=== PATIENT | male | born 1980 | race Caucasian/White ===

== ENCOUNTER 2024-09-10 07:56 | Outpatient (AMB) | payer BC, SELFPAY ==
--- OUTSIDE RECORDS SUMMARY | 2024-09-10 07:58 | XMS_ITS | Data Portability ---
Author Organization [place] - [facility], [facility] [employer] Address [address] [place] [address] Assessment No assessment recorded. Plan of Treatment Reminders Order Date Submit Date Provider Last Modified By Organization Details Last Modified Time Details Appointments None recorded . Lab culture, wound - left hand wound 2018 019 [facility], [address] [place], [address], 9 11:05:48 PSA, serum or plasma 2017 018 [facility], [address] [place], [address], 8 14:49:03 glucose, fasting, QN, serum or plasma 2017 018 [facility], [address] [place], [address], 8 14:53:18 choleste rol, total, serum 2017 018 [facility], [address] [place], [address], 8 14:53:20 creatini ne, serum or plasma 2017 018 [facility], [address] [place], [address], 8 14:53:18 glucose, QN [mass/vo lume], serum or plasma 2016 017 [facility], [address] [place], [address], 7 20:06:25 creatini ne, serum or plasma 2016 017 [facility], [address] [place], [address], 7 20:06:26 PSA, serum or plasma 2016 017 [facility], [address] [facility] [place], [address], 7 09:29:28 choleste rol, total, serum 2016 017 [facility], [address] [place], [address], 7 20:06:27 CBC w/ manual diff 2015 016 [email or web address] Not available 7 08:38:29 CMP, serum or plasma 2015 016 [email or web address] Not available 7 08:38:29 lipid panel, serum 2015 016 [email or web address] [id number] Not available 6 04:16:11 lipid panel, serum 2015 016 [email or web address] [facility], [address] [place], [address], 7 08:38:29 bun/crea tinine, ratio, serum 2015 016 [email or web address] [id number] [facility], [address] [facility], [address], 6 04:16:14 glucose, QN [mass/vo lume], serum or plasma 2015 016 [email or web address] [id number] [facility], [address] [facility] [place], [address], 6 04:16:57 vitamin D, 25-hydro xy, total, serum 2015 016 [facility], [address] [place], [address], 7 08:38:29 PSA, serum or plasma 2015 016 [email or web address] [id number] [facility], [address] [place], [address], 6 04:16:11 choleste rol, total, serum 2015 016 [facility], [address] [place], [address], 7 08:38:29 Referral hand surgeon referral 2018 019 LACEY Hairston DO, [address] [place], [address], 9 12:04:48 Procedures None recorded . Surgeries None recorded . Imaging XR, hand, 2 view 2018 019 [facility] (Central Scheduling), [address] [facility], [place], [address], 9 14:02:03 electroc ardiogra m 2016 017 [email or web address] In-Office Order, Internal Use Only DO Not Attach Compendium DO Not Attach Compendium, Do Not Delete/merge, [id number] 7 08:12:40 Medication Orders doxycycl ine hyclate 100 mg tablet 2018 019 [email or web address] [facility], [address] [facility], [place], [address], 9 09:24:46 triamcin olone acetonid e 0.1 % topical cream 2017 018 INTERFACE [id number], [address] [place], [place], [id number], 8 09:24:43 Patient TargetsNo targets recorded. Patient Instructions Encounter Date Encounter Id Patient Instructions Last Modified By Organization Details Last Modified Time 04/14/2017 [id number] heart murmur: care instructions [email or web address] Not available 04/18/2017 09:50:14 04/17/2018 [id number] Eczema: Care Instructions [email or web address] Not available 04/17/2018 09:24:40 10/12/2018 [id number] tick bite: care instructions [email or web address] Not available 10/12/2018 15:25:50 12/21/2018 [id number] X-ray hand to rule out foreign body. You can go to either [place] or [place] as a walk-in patient during normal business hours. I have sent a wound culture. I'm referring you to a hand specialist since this is not a lesion I can excise for you here in the office and it's near important hand structures. Follow up as needed. [email or web address] Not available 12/21/2018 09:46:41 Reason for Referral Hand Surgeon Referral for So ft tissue lesion of wrist and hand nonhealing left hand lesion Referring Physician: Amber Garcia, Internal Medicine, Encounter Date: 12/21/2018 Results Created Date Observation Date Name Description Value Unit Range Abnormal Flag Note LastModifiedBy Organization Detail LastModifiedTime 01/15/20 16 01/15/2016 bun/c reati nine, ratio , serum BUN 15 mg/dL 6-21 normal Not Available [address] [place] [address], [address], 01/15/2016 19:46:12 01/15/20 16 01/15/2016 bun/c reati nine, ratio , serum creatinine 1.06 mg/dL 0.0-1. 3 normal Not Available [address] [place] [address], [address], 01/15/2016 19:46:12 01/15/20 16 01/15/2016 bun/c reati nine, ratio , serum glomerular filtration rate > 60 normal Units : mL/mi n/1.7 3 m2 Estim ated GFR (eGFR ) lida hand not be used for patie nts with acute kidne y injur y or ESRD (crea tinin e shoul d be at stead y state and stabl e to use). eGFR is calcu lated using the 2009 CKD-E PI creat inine equat ion, which is now the recom abraham d equat ion to estim ate GFR based on creat inine per lates t KDIGO (Kidn ey Disea se Impro ving Globa l Outco mes) Guide lines . KDIGO recom mends CKD now be class ified based on cause , GFR categ ory, and album inuri a categ ory. GFR categ ories will not be repor mildred by the lab for G1 or G2 (eGFR >60). GFR categ ories shoul d be assig lilo as: eGFR 45-59 = G3a (mild ly to moder ately decre ased) , eGFR 30-44 = G3b (mode ratel y to sever amarilis decre ased) , eGFR 15-29 G4 (nuris rely decre ased) , eGFR< 15 G5 (kidn ey failu re). Not Available [address] [place] [address], [address], 01/15/2016 19:46:12 01/15/2001/15/2016 gluco se, QN [mass /volu me], serum or plasm a glucose 86 mg/dL 70-109 normal Not Available [address] [place] [address], [address], 01/15/2016 19:46:13 01/15/2001/15/2016 lipid panel , serum cholesterol 182 mg/dL normal CORRIE ABLE <200 Corrie able 200-2 39 Borde rline High >=240 High Not Available [address] [place] [address], [address], 01/15/2016 19:46:13 01/15/2001/15/2016 lipid panel , serum triglyceride 82 mg/dL normal SOPHIE L <=150 Sophie l 150-1 99 Borde rline High 200-4 99 High >=500 Very High Not Available [address] [place] [address], [address], 01/15/2016 19:46:13 01/15/2001/1401/15/2016 lipid panel , serum HDL 54 mg/dL normal <40 Low >=60 Optim al Not Available [address] [place] [address] [address] [place] [address], [address], 01/15/2016 19:46:13 01/15/20 16 01/15/2016 lipid panel , serum calculated LDL 112 mg/dL normal NEAR OPTIM AL <100 Optim al 100-1 29 Near optim al 130-1 59 Borde rline High 160-1 89 High >=190 Very High The above class ifica tions are based on the recom menda tions of the NCEP Exper t Panel , (ATP III, 2001) . Not Available [address] [place] [address], [address], 01/15/2016 19:46:13 01/15/20 16 01/16/2016 PSA, serum or plasm a prostatic specific Ag 1.07 NG/mL 0-4 normal PSA was perfo rmed using the ACCES SII Immun oassa y metho d. Value s obtai lilo from diffe rent assay metho ds canno t be used inter rossi eably . PSA level s, regar dless of value , shoul d not be inter prete d as absol [place] evide nce of the prese nce or absen ce of disea se. Not Available [address] [place] [address], [address], 01/16/2016 13:00:15 04/14/20 17 04/14/2017 gluco se, QN [mass /volu me], serum or plasm a glucose 64 mg/dL 70-109 low Not Available [address] [place] [address] [address] [place] [address], [address], 04/14/2017 20:06:25 04/14/20 17 04/14/2017 creat inine , serum or plasm a creatinine 1.09 mg/dL 0.0-1. 3 normal Not Available [address] [place] [address], [address], 04/14/2017 20:06:26 04/14/20 17 04/14/2017 creat inine , serum or plasm a glomerular filtration rate > 60 normal Units : mL/mi n/1.7 3 m2 Estim ated GFR (eGFR ) shoul d not be used for patie nts with acute kidne y injur y or ESRD (crea tinin e shoul d be at stead y state and stabl e to use). eGFR is calcu lated using the 2009 CKD-E PI creat inine equat ion, which is now the recom abraham d equat ion to estim ate GFR based on creat inine per lates t KDIGO (Kidn ey Disea se Impro ving Globa l Outco mes) Guide lines . KDIGO recom mends CKD now be class ified based on cause , GFR categ ory, and album inuri a categ ory. GFR categ ories will not be repor mildred by the lab for G1 or G2 (eGFR >60). GFR categ ories shoul d be assig lilo as: eGFR 45-59 = G3a (mild ly to moder ately decre ased) , eGFR 30-44 = G3b (mode ratel y to sever amarilis decre ased) , eGFR 15-29 G4 (nuris rely decre ased) , eGFR< 15 G5 (kidn ey failu re). Not Available [address] [place] [address], [address], 04/14/2017 20:06:26 04/14/20 17 04/14/2017 vu stero l, total , serum cholesterol 154 mg/dL normal CORRIE ABLE <200 Corrie able 200-2 39 Borde rline High >=240 High The above class ifica tions are based on the recom menda tions of the NCEP Exper t Panel , (ATP III, 2001) . Not Available [address] [place] [address] [address] [place] [address], [address], 04/14/2017 20:06:27 04/14/20 17 04/15/2017 PSA, serum or plasm a prostatic specific Ag 1.21 NG/mL 0-4 normal PSA was perfo rmed using the ACCES SII Immun oassa y metho d. Value s obtai lilo from diffe rent assay metho ds canno t be used inter rossi jaswant . PSA level s, regar dless of value , shoul d not be inter prete d as absol [place] evide nce of the prese nce or absen ce of disea se. Not Available [address] [place] [address] [address] [place] [address], [address], 04/15/2017 09:29:28 04/17/20 18 04/17/2018 PSA, serum or plasm a PSA screen 0.92 NG/mL 0-4 normal Value s obtai lilo from diffe rent assay metho ds canno t be used inter [facility] . PSA level s, regar dless of value , shoul d not be inter prete d as absol [place] evide nce of the prese nce or absen ce of disea se. Not Available [address] [place] [address], [address], 04/17/2018 14:49:02 04/17/20 18 04/17/2018 gluco se, fasti ng, QN, serum or plasm a glucose, fasting 95 mg/dL 70-100 normal Not Available [address] [place] [address] Draw[address] [place] [address], [address], 04/17/2018 14:53:18 04/17/20 18 04/17/2018 creat inine , serum or plasm a creatinine 1.04 mg/dL 0.0-1. 3 normal Not Available [address] [place] [address], [address], 04/17/2018 14:53:18 04/17/20 18 04/17/2018 creat inine , serum or plasm a glomerular filtration rate > 60 normal Units : mL/mi n/1.7 3 m2 Estim ated GFR (eGFR ) henrryul d not be used for patie nts with acute kidne y injur y or ESRD (crea tinin e henrryul d be at stead y state and stabl e to use). eGFR is calcu lated using the 2009 CKD-E PI creat inine equat ion, which is now the recom abraham d equat ion to estim ate GFR based on creat inine per lates t KDIGO (Kidn ey Disea se Impro ving Globa l Outco mes) Guide lines . KDIGO recom mends CKD now be class ified based on cause , GFR categ ory, and album inuri a categ ory. GFR categ ories will not be repor mildred by the lab for G1 or G2 (eGFR >60). GFR categ ories shoul d be assig lilo as: eGFR 45-59 = G3a (mild ly to moder ately decre ased) , eGFR 30-44 = G3b (mode ratel y to sever amarilis decre ased) , eGFR 15-29 G4 (nuris rely decre ased) , eGFR< 15 G5 (kidn ey failu re). Not Available [address] [place] [address], [address], 04/17/2018 14:53:18 04/17/20 18 04/17/2018 vu stero l, total , serum cholesterol 190 mg/dL normal CORRIE ABLE <200 Corrie able 200-2 39 Borde rline High >=240 High The above class ifica tions are based on the recom menda tions of the NCEP Exper t Panel , (ATP III, 2001) . Not Available [address] [place] [address], [address], 04/17/2018 14:53:19 12/22/19 19 12/22/2018 cultu re, wound gram stain GRAM STAIN RESULT normal Not Available [address] [place] [address], [address], 12/23/2018 13:02:59 12/22/1912/22/2018 cultu re, wound gram stain NO CELLS OR ORGANI SMS SEEN normal Not Available [address] [place] [address], [address], 12/23/2018 13:02:59 12/22/1912/22/2018 cultu re, wound gram stain Not Available [address] [place] [address] Draw[address] [place] [address], [address], 12/23/2018 13:02:59 12/22/1912/23/2018 cultu re, wound wound culture ORGANI SM 1: STAPHY LOCOCC US INTERM EDIUS Not Available [address] [place] [address] [address] [place] [address], [address], 12/23/2018 13:02:59 12/22/19 19 12/23/2018 cultu re, wound wound culture 2+ Not Available [address] [facility] [address] [place] [address], [address], 12/23/2018 13:02:59 12/22/19 19 12/23/2018 cultu re, wound wound culture Not Available [address] [place] [address], [address], 12/23/2018 13:02:59 12/22/19 19 12/23/2018 cultu re, wound wound culture STAPHY LOCOCC US INTERM EDIUS: GRAM POS BP COMBO 20-MSC AN Not Available [address] [place] [address], [address], 12/23/2018 13:02:59 12/22/19 19 12/23/2018 cultu re, wound wound culture TRIMET HOPRIM /SULFA METHOX AZOLE S susceptib le Not Available [address] [place] [address], [address], 12/23/2018 13:02:59 12/22/19 19 12/23/2018 cultu re, wound wound culture AMPICI LLIN R resistant Not Available [address] [place] [address], [address], 12/23/2018 13:02:59 12/22/1912/23/2018 cultu re, wound wound culture CEPHAL OTHIN S susceptib le Not Available [address] [place] [address], [address], 12/23/2018 13:02:59 12/22/1912/23/2018 cultu re, wound wound culture CIPROF LOXACI N S susceptib le Not Available [address] [place] [address], [address], 12/23/2018 13:02:59 12/22/19 19 12/23/2018 cultu re, wound wound culture CLINDA MYCIN S susceptib le Not Available [address] [place] [address], [address], 12/23/2018 13:02:59 12/22/1912/23/2018 cultu re, wound wound culture ERYTHR OMYCIN S susceptib le Not Available [address] [place] [address], [address], 12/23/2018 13:02:59 12/22/1912/23/2018 cultu re, wound wound culture GENTAM ICIN S susceptib le Not Available [address] [place] [address], [address], 12/23/2018 13:02:59 12/22/1912/23/2018 cultu re, wound wound culture OXACIL ISABEL S susceptib le Not Available [address] [place] [address], [address], 12/23/2018 13:02:59 12/22/1912/23/2018 cultu re, wound wound culture PENICI LLIN R resistant Not Available [address] [place] [address], [address], 12/23/2018 13:02:59 12/22/1912/23/2018 cultu re, wound wound culture TETRAC YCLINE R resistant Not Available [address] [place] [address], [address], 12/23/2018 13:02:59 12/22/1912/23/2018 cultu re, wound wound culture VANCOM YCIN S susceptib le Not Available [address] [place] [address], [address], 12/23/2018 13:02:59 12/22/1912/23/2018 cultu re, wound wound culture Not Available [address] [place] [address] [address] [place] [address], [address], 12/23/2018 13:02:59 04/18/20 17 04/14/2017 elect rocar diogr am No observ ation record ed. [facility] In-Office Order Internal Use Only DO Not Attach Compendium DO Not Attach Compendium, Do Not Delete/merge, [id number] 04/18/2017 09:30:01 12/22/19 19 12/21/2018 hand [facility] s SHAN RN [facility] ALON IMAGIN G CTR DIAGNO STIC IMAGIN G DEPART MENT [address] [place]. [address] - Patien t: PEPPER MAYRA TAY Lewis Phone: Exam Date:0 9 Exam: HAND & WRIST 3 VIEW LT Attend azul Fontaine:MIKE KINGSTON :[birth year] Age/Se x: 38/M Orderi tyrone Fontaine:MIKE KINGSTON ECammy Attend azul Fontaine: Gurmeet Fontaine: JUAN M MAN MD X-Ray #: [id number] Locati on: RAD.NA Other Locati on: Clinic al Histor y: SOFT TISSUE LESION OF LEFT WRIST AND HAND HAND WRIST 3 VIEW LT 019 10:28 AM CLINIC AL INFORM ATION: SOFT TISSUE LESION OF LEFT WRIST AND HAND ; 38 years Male Findin gs: The bones, joint spaces , and surrou nding soft tissue s are radiog raphic ally normal . Impres [place]: Negati ve exam. Statio n: [id number] 0A Access ion Number : [id number] Transc ribed by: PS Interp reting Physic belinda: PARIS VOSS MD Electr onical ly Signed by: JUDIE VOSS MD on 1332 Rec'd in [facility] on : 1332 Techno logist : CP Exam CPT #: ,Order #: [id number] Report #: [id number] Med Rec#:[id number] Report Status : Signed [facility] (Radiology) [address] [place] [address], [address], 12/21/2018 15:43:09 12/22/19 19 12/21/2018 XR, hand, 2 view No observ ation record ed. [facility] (Central Scheduling) [address] [place] [address], [address], 12/21/2018 14:02:03 01/27/20 19 12/21/2018 XR, hand, 2 view No observ ation record ed. [facility] (Central Scheduling) [address] [place] [address], [address], 01/26/2019 13:38:10 Result Notes None recorded. Problems No Known Problems Procedures Surgical History Date Name Laterality Status Provider Name and Address Organization Details Recorded Time Tonsillectomy completed Juan M moran MD. [address] [place] [address], [phone], [facility] 04/17/2018 09:10:52 Imaging Results Imaging Date Name Status LastModified by Organization Details LastModified Time 04/14/2017 electrocardiogram completed [facility] In-Offi ce Order Internal Use Only DO Not Attach Compendium DO Not Attach Compendium, Do Not Delete/merge, [id number] 04/18/2017 09:30:01 12/21/2018 hand completed [facility] (Radiology) [address] [place] [address], [address], 12/21/2018 15:43:09 12/21/2018 XR, hand, 2 view completed [facility] (Central Scheduling) [address] [place] [address], [address], 12/21/2018 14:02:03 12/21/2018 XR, hand, 2 view completed [facility] (Central Scheduling) [address] [place] [address], [address], 01/26/2019 13:38:10 Procedure Notes None recorded. Medical Equipment None Reported. Allergies No known drug allergies Medications Name Sig Start Date Stop Date Status Note LastModified by Organization Details LastModified Time sulfamethox azole 800 mg-trimetho prim 160 mg tablet TAKE 1 TABLET BY MOUTH EVERY 12 HOURS FOR 10 DAYS active Not Available Not Available No t Available triamcinolo ne acetonide 0.1 % topical cream APPLY A THIN LAYER TO THE AFFECTED AREA(S) TOPICALLY 2 TIMES A DAY active Not Available Not Available No t Available doxycycline hyclate 100 mg tablet TAKE 1 TABLET BY MOUTH TWICE DAILY WITH MEALS 12/21 completed Not Available Not Available Not Available Vitals Date Recorded Body height Body weight Body mass index (BMI) Heart rate Oxygen saturation Oxygen saturation in Arterial blood by Pulse oximetry Body temperature Systolic blood pressure Diastolic blood pressure Provider Name and Address Organization Details Last Updated DateTime 6 182.88 cm 75273.2 2 g 24.5 kg/m2 52 /min 99 % 99 % 97.6 [degF] 132 mm[Hg] 72 mm[Hg] Isamar Mitchell LPN [employer] 6 14:30:46 Date Recorded Body height Body mass index (BMI) Body weight Heart rate Oxygen saturation Oxygen saturation in Arterial blood by Pulse oximetry Systolic blood pressure Diastolic blood pressure Provider Name and Address Organization Details Last Updated DateTime 7 182.88 cm 25.5 kg/m2 79945.3 7 g 58 /min 98 % 98 % 120 mm[Hg] 80 mm[Hg] cababurton gallegos [employer] 7 14:14:07 Date Recorded Body height Body mass index (BMI) Body weight Heart rate Oxygen saturation Oxygen saturation in Arterial blood by Pulse oximetry Systolic blood pressure Diastolic blood pressure Provider Name and Address Organization Details Last Updated DateTime 8 182.88 cm 27.4 kg/m2 59639.6 6 g 63 /min 96 % 96 % 116 mm[Hg] 82 mm[Hg] rosales brock [employer] 8 09:02:30 Date Recorded Body height Body mass index (BMI) Body weight Heart rate Oxygen saturation Oxygen saturation in Arterial blood by Pulse oximetry Body temperature Systolic blood pressure Diastolic blood pressure Provider Name and Address Organization Details Last Updated DateTime 9 182.88 cm 27.3 kg/m2 58036.1 7 g 79 /min 99 % 99 % 98.2 [degF] 120 mm[Hg] 80 mm[Hg] dennis carey [facility] [employer] [facility] 9 15:13:45 Date Recorded Body height Body mass index (BMI) Body weight Heart rate Oxygen saturation Oxygen saturation in Arterial blood by Pulse oximetry Systolic blood pressure Diastolic blood pressure Provider Name and Address Organization Details Last Updated DateTime 9 182.88 cm 26.9 kg/m2 66310.0 9 g 66 /min 96 % 96 % 118 mm[Hg] 76 mm[Hg] Susy SmithDonaldJoshua safia [facility] [employer] [facility] 9 09:18:20 Social History None recorded. 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 Family History Relationship Description Onset Age of this Age Resolved Age Notes LastModified by Organization Details LastModified Time Father Carcinoma of prostate ajoslin Not available 2015 14:11:44 Notes:Kristopher has no children M ategisellel grandfather is alive and quite well at advanced age. Medical History No medical history recorded. Immunizations Vaccine Type Date Status Note Provider Nam e and Address Organization Details Recorded Time Influenza, split virus, quadrivalent, preservative 0 completed Paula Berry LPN [facility] [employer] [facility] 07/27/2019 10:12:56 Past Encounters Encounter ID Performer Location Encounter Start Date Encounter Closed Date Diagnosis/Indication Diagnosis SNOMED-CT Code Diagnosis ICD10 Code Diagnosis Note [id number] Juan M Man MD. [facility] [employer]ist s [address] [place] [phone] 01/15/2016 14:19:29 01/15/2016 16:57:06 Adult health examination 087590108 Z00.00 General health remains excellent and he has not smoked for quite a while now. We will check routine lab studies. Continue healthy lifestyle and close followup here and with other providers. Call back if symptoms change or worsen, or if additional problems develop. Screening procedure 2012 5006 Z13.9 Vitamin D deficiency 347 63798 E55.9 Hyperlipid emia screening 622490831 Z13.220 Screening for disorder 309578451 Z13.9 [id number] Juan M Man MD. [facility] [employer]ist s [address] [place] [address] [place] [phone] 04/14/2017 14:04:38 04/14/2017 14:48:41 Adult health examination 089457213 Z00.00 General health remains excellent and he has not smoked for quite a while now. Will check routine lab studies. Continue healthy lifestyle and routine followup here and with other providers. Call back if symptoms change or worsen, or if additional problems develop. Screening procedure 2012 5006 Z13.9 Father has had prostate cancer Murmur 851544496 R01.1 Most likely functional murmur [id number] Juan M Man MD. [facility] [employer] s [address] [place] [address] [place] [address] 04/17/2018 08:58:28 04/17/2018 09:51:16 Adult health examination 437779025 Z00.00 General health remains excellent and he has not smoked for quite a while now. Will check routine lab studies. Continue healthy lifestyle and routine followup here and with other providers. Avoid further weight gain Call back if symptoms change or worsen, or if additional problems develop. Family his tory of malignant neoplasm of prostate 370584550 Z80.42 Atopic dermatitis 420486 01 L20.9 Minor findings consistent with atopic dermatitis exacerbate d by dryness [id number] Joey Higginbotham MD. [facility] [employer] s [address] [place] [address] [place] [address] 10/12/2018 15:07:47 10/12/2018 15:27:01 Tick bite [id number].XXXA suspect lyme tick bite [id number] Kameron Bryant MD. [facility] Information Systems Security Specialist s [address] [place] [address] [place] [address] 12/21/2018 09:10:58 12/21/2018 09:41:07 Soft tissue lesion of wrist and hand [id number] M79.9 Health Concerns Section Related Observation LastModified by Organization Detai ls LastModified Time None Recorded Concern Status LastModified by Organization Details LastModified Time None Recorded Advance Directives Directive None Recorded Payers Encounter Date Sequence Insurance Name Policy Number Policy Valenzuela Covered Member ID Valenzuela Member ID Guarantor Name 01/15/2016 1 [facility] (O) Anthony Pepper [id number] Anthony Pepper 04/14/2017 1 [employer] - [employer] (HMO) [id number] Anthony Johnsonker [id number] Anthony Pepper 04/17/2018 1 [facility] DIRECT - [employer] (HMO) [id number] Anthony Lewis Pepper [id number] Anthony Pepper 10/12/2018 1 [facility] [employer] - [employer] (HMO) [id number] Anthony T Ppeper [id number] Anthony Pepper 12/21/2018 1 [facility] [employer] - [employer] (HMO) [id number] Anthony T Pepper [id number] Anthony Pepper Notes Date Note Type Note Provider Name and Address Organization Details Recorded Time 01/15/2016 text/html Nothing hurts. H as not been ill. No injuries. Feels well today. Medical record and laboratory results reviewed No complaints of any kind. No problems related to past sports injuries. Juan M Man MD. [address] [place] [address], [phone], [facility] [employer] 01/18/2016 14:17:33 04/14/2017 text/html Comprehensive review Nothing hurts. Has not been ill. No injuries. Feels well today. Medical record and laboratory results and consultations and imaging reviewedHeart murmur noted in the past. He recalls having echocardiogram which revealed no worrisome findings No prescription medications Athletic. Continues to play basketball Juan M Man MD. [address] [place] [address], [phone], [facility] [employer] [facility] 04/17/2017 15:55:23 04/17/2018 text/html Comprehensive review Nothing hurts. Has not been ill. No injuries. Feels well today. Medical record and laboratory results and consultations and imaging reviewed. No prescription medications Athletic. Continues to play basketball. Has some rash in the popliteal area. No particular history of any skin disorders Juan M Man MD. [address] [place] [address], [phone], [facility] [employer] 04/18/2018 16:02:14 10/12/2018 text/html patient had a ti ck bite on the left upper back with a red circular rash which developed about a week after the tick was removed. patient said he is unsure how long the tick was on his body and he is also not sure what kind of tick that was. his friend pulled it out for him. no fever. patient did see the tick. Joey Higginbotham MD. 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 Amber Garcia NP [address] [place], [phone], [employer] 12/21/2018 09:46:57
--- NOTE | 2024-09-10 08:15 | A.OFFVIS_ITS ---
Intake Visit Reasons: Vasectomy Consult Allergies No Known Allergies Allergy (Verified 09/10/24 08:43) Medication List - Last Reconciled 09/10/24 by ALLISON Kelley-IRAM diazepam (Valium) 2 mg PO DAILY 2 days tramadol 50 mg PO Q8H PRN 3 days HPI Comments Details: Anthony is a very pleasant 44-year-old male patient. He presents to the office today for - vasectomy evaluation Vasectomy evaluation The patient presents for vasectomy consultation.? He is currently He has fathered -2 children, with a single partner The youngest child is - will be 4 years old in October His partner is aware and permissive for a vasectomy Current form of control is condoms Current employment is works at a bank The vasectomy may be complicated due to a history of no complicating issues. Patient education has been provided via AUA video, via printed information, risks of failure, recovery time, bruising and potential pain syndrome have been stressed Discussion today focused on the presence of vasectomy and the risks, benefits and alternatives that are available. Vasectomy as intended as a permanent form of control. Printed information and literature was provided to the patient. Overall there is a one in 2500 failure rate. This can occur at any time after vasectomy. Risks were discussed highlighting hematoma, spermatocele, epididymal congestion, development of sperm antibodies, and development of chronic pain estimated between 1-5%. The procedure was reviewed in detail. Anatomical diagrams of the male genitalia were used to explain the location of the vas deferens. The vas deferens will be transected, the proximal end will be cauterized, a metal clip would be applied to separate the 2 vas deferens ends. It was explained the procedure will be done in the office and takes approximately 10-15 minutes. Less common problems that arise with vasectomy include hematoma, bleeding, allergic reaction to anesthetic, epididymal infection, epididymal congestion, scrotal discomfort, spermatic leak, spermatic granuloma and the possibility of antisperm antibodies. He understands these risks and wishes to proceed. Consent was signed at the office today. He also understands that it takes 12 weeks for sperm to fully clear the system. He will need to provide a semen sample at 12 weeks and if this is not clear a 2nd sample at 16 weeks. Medical clearance to stop using protection will only be provided if he satisfies published criteria for sperm clearance. Review of Systems Const All systems reviewed & are unremarkable except as noted in HPI and below Physical Exam Const General: cooperative, healthy appearing, comfortable, no acute distress, well developed, alert and awake Nutritional Appearance: average body habitus Orientation/consciousness: patient oriented x3 Limitations: no limitations HEENT Head: Yes normal to inspection, Yes normocephalic and Yes atraumatic Ears: hearing grossly normal bilaterally Eyes General: appearance normal, both eyes and all related structures Neck Neck: Yes normal visual inspection and Yes trachea midline Chest Chest palpation & inspection: normal inspection of the chest Resp Effort & Inspection: normal respiratory effort and able to speak in complete sentences Cardio Rate: regular rate GI Inspection: Yes normal to inspection General: Yes no CVA tenderness Male General Exam: Yes normal external exam Penis: normal penis Meatus: meatus normal Scrotum: scrotum normal Testes: Testes normal Back/Spine/Pelvis Back: no CVA tenderness Skin General skin exam: no rashes or lesions noted Neuro General: patient oriented x3 Extrem General: Yes normal to inspection Psych Appearance: grossly normal and well kempt Mental Status: mental status grossly normal Speech and movement: Normal speech and movement present and Clear speech present Affect: normal affect Attitude: cooperative Thought process: Normal thought process present Thought content: Normal thought content present Insight: Fair insight present (Psych) Judgement: Fair judgement present (Psych) Assessment & Plan Assessment & Plan (1) Anxiety about health: Code(s): R45.89 - Other symptoms and signs involving emotional state Category: Medical (2) Vasectomy evaluation: Code(s): Z30.09 - Encounter for other general counseling and advice on contraception Category: Medical Plan Vasectomy was discussed in detail; risks and benefits; as noted above. All questions were answered. Consent obtained. We discussed semen analysis in office verses fellows kit Prescriptions provided; we discussed importance of bringing medication to office day of procedure. Will schedule for vasectomy. Follow-up per doctor's orders; or sooner with any issues, concerns, and or q uestions. Medications: New diazepam (Valium) Bring medication to office day of procedure 2 mg PO DAILY 2 tabs 0RF anxiety 2 days R45.89 - Other symptoms and signs involving emotional state tramadol Bring medication to office day of procedure 50 mg PO Q8H PRN 7 tabs 0RF pain 3 days N43.3 - Hydrocele, unspecified Patient Instructions: The patient had an opportunity to ask questions regarding the treatment plan. All questions were answered. Physical exam, labs, and imaging were discussed and reviewed in detail. As well as risks, benefits, and discussion of treatment choices. No major barriers to understanding were identified. The patient expressed understanding and agreement with the above treatment plan. The patient was made aware they should contact our office by phone for worsening of their current condition, the appearance of new symptoms, or with any questions or concerns. Compliance is encouraged with any medications and follow up testing that is ordered. It is a privilege to be allowed the opportunity to participate in? your urological care.? Again, if you have any questions or concerns If you have any questions or concerns please do not hesitate to contact me. The office is [phone]. This note is constructed using voice recognition software. While every effort has been made to ensure accuracy complaint specialist errors may have been included. Yours sincerely, TRUE Kelley Coding Level of Care Code New Pt Level 4 (88728) Diagnoses Anxiety about health R45.89 Vasectomy evaluation Z30.09
== END 2024-09-10 08:38 | disposition home or self-care (01) ==
LOC: HO.HUSH 07:57
PROVIDERS: Visit Provider Nurse Practitioner Family
DX: R45.89 Other symptoms and signs involving emotional state (principal); Z30.09 Encounter for other general counseling and advice on contraception
CPT/HCPCS: 99204

== ENCOUNTER → 2024-09-10 07:56 | Outpatient (BNVA) | payer BC, SELFPAY | PROVIDERS: Visit Provider Nurse Practitioner Family ==

== ENCOUNTER 2024-11-14 14:56 | Outpatient (AMB) | payer BC, SELFPAY ==
--- NOTE | 2024-11-14 15:13 | A.OFFVIS_ITS ---
Intake Visit Reasons: Vasectomy Intake Note: Patient is present for VASECTOMY Urology Medication:NONE Antibiotic Allergy:NONE Blood Thinner:NONE Bi Manager Required: No Allergies No Known Allergies Allergy (Verified 11/14/24 15:14) HPI Comments Details: Anthony is a very pleasant 44-year-old male patient. He presents to the office today for - vasectomy procedure Vasectomy procedure The patient presents for vasectomy procedure.? He is currently He has fathered -2 children, with a single partner The youngest child is - will be 4 years old in October His partner is aware and permissive for a vasectomy Current form of control is condoms Current employment is works at a [employer] Review of Systems Const Denies chills and Denies fever(s) Card Reports no additional complaints and Denies syncope Resp Denies cough GI Denies abdominal pain and Denies heartburn Reports as per HPI and Denies change in libido Neuro Denies syncope Psych Denies change in libido Endo Denies change in libido Physical Exam Const General: cooperative, healthy appearing, comfortable and no acute distress Orientation/consciousness: patient oriented x3 HEENT Face and sinus: Yes normal facial exam Mouth: moist mucous membranes Neck Neck: Yes normal visual inspection, Yes full ROM and Yes trachea midline Chest Chest palpation & inspection: normal inspection of the chest Resp Effort & Inspection: normal respiratory effort, able to speak in complete sentences and no respiratory distress GI Inspection: Yes normal to inspection Back/Spine/Pelvis Cervical Spine: normal cervical lordosis Thoracic/Lumbar Spine: thoracic and lumbar spine normal to inspection Skin General skin exam: no rashes or lesions noted Neuro General: patient oriented x3, gait normal, tone normal and moves all extremities Extrem General: Yes normal to inspection and Yes capillary refill normal Office Procedures Vasectomy Details: Preoperative diagnosis: Anxiety regarding Postoperative diagnosis: Anxiety regarding unplanned Procedure: Bilateral vasectomy Informed consent had been completed. Preoperative and postoperative instructions were provided to the patient. The patient has transportation to home identified at the completion of the procedure. Anti-anxiolytic prescription medication had been taken after consent verification and all questions answered. Tylenol with Codeine pain medication was also provided. The penis was elevated using a rubber band that was attached to the patient's shirt. Both vasa were palpated through the skin using a 3 finger technique and the penoscrotal junction was prepped with Betadine. After Betadine application the left vas was elevated using a 3 finger grasping technique. 1% lidocaine was used to create a subdermal bubble. Further anesthetic was then advanced using the 25-gauge needle along the vasa in a proximal fashion. Approximately 2 minutes were allowed to for local anesthetic uptake. Using the sharp spreading instrument the scrotal skin was spread longitudinally in line with the vasa until the subdermal layer had been divided. The vasa was then elevated from the scrotum using a ring clamp. Care was taken to elevate the superior portion of the vasa by rotating the ring clamp in a caudad direction. The battery powered cautery was used to divide the vasal sheath in a longitudinal direction on the exposed vasa and to strip the vasal sheath from the vasa. A 2nd narrower ring clamp was placed on the exposed vas and used to lift the vas from the vasal sheath. so it grasped the elevated vas. The cautery was used to divide vasal attachments and allow full exposure of a small loop of vasa. The sharp spreading instrument was then used to create a tunnel under the vasa and spread to allow the blood vessels of the vasa to retract from the vasa. A mosquito clamp was placed on the proximal portion of the vas. The battery- powered cautery was used to make a partial division in the proximal vas and then inserted in order to cauterize the proximal end of the vas. This was then cut and allowed to retract into the vasal sheath. The mosquito was then used to twist the vasa 180 degrees creating a fascial interposition. Using a 4-0 chromic suture the fascial interposition was sutured closed. The distal portion of the vas was then cut in order to obtain a segment of vasa. The vasa were allowed to retract back into the scrotum. A small snap was then used to approximate the skin edges and allow hemostasis without placement of a suture. A similar procedure was repeated on the right side. He tolerated the procedure well. Triple antibiotic was applied. A gauze was applied. An ice pack was applied to assist with minimizing swelling. Postoperative instructions were confirmed. He understands the need to continue to use control methods. A semen sample should be brought for inspection under the microscope in 10-12 weeks. CPT 58443 Vasectomy performed by: Isauro Courtney Informed consent given: Yes Informed consent signed: Yes Time out checklist: patient, procedure, site marked/identified, positioning of patient, supplies available, allergies confirmed and team agrees on procedure Preoperative sedation: Yes Anesthetic used: other Specimens: vas segments not sent to pathology [address]70 - Vasectomy Office Meds lidocaine (PF) 10 mg/mL (1 %) injection solution Performing Provider: Isauro Courtney MD Performing [facility] [place] [facility] Documented (not given) by: Isauro Courtney MD on 11/14/24 17:24 Dose Route Admin Location Dispensed Lot Number Expiration Date NDC [employer] Operations [employer] 2 mL Infiltration mL Total Dispensed Waste n/a n/a Assessment & Plan Assessment & Plan (1) Anxiety about health: Code(s): R45.89 - Other symptoms and signs involving emotional state Category: Medical Plan Three-month follow-up semen office Orders: Orders AMB Vasectomy Today R45.89 - Other symptoms and signs involving emotional state Medications: New lidocaine (PF) 2 mL Infiltration ONCE 2 mL 0RF R45.89 - Other symptoms and signs involving emotional state Patient Instructions: This note is constructed using voice recognition software. While every effort has been made to ensure accuracy prison teacher errors may have been included. Imaging studies, laboratory and physical exam results were discussed and reviewed in detail. No major barriers to patient understanding were identified. An opportunity to ask questions regarding the treatment plan was provided. All questions were answered. The patient expressed understanding and agreement with the above treatment plan. The patient is aware they should contact our office by phone for worsening of their current condition or the appearance of new urologic symptoms. Compliance is encouraged with any medications and followup testing that is ordered. It is a privilege to participate in the urologic care of your patient. If you have any questions or concerns regarding treatment for the above conditions, or other urologic issues, please do not hesitate to contact me. The office telephone contact is [phone]. Sincerely, Dr Isauro Courtney MD, [facility] - Urology Compassionate Specialist Care for the Genitourinary System Coding Level of Care Code Procedure Only Diagnoses Anxiety about health R45.89 CPT Codes Office Procedure - CPT: 73719 - Vasectomy ([id number])
--- OUTSIDE RECORDS SUMMARY | 2024-11-14 15:27 | XMS_ITS | Data Portability ---
Author Organization [place] - [employer] [facility], [facility] Seed Technician Address [address] [place] [address] Assessment No assessment recorded. Plan of Treatment Reminders Order Date Submit Date Provider Last Modified By Organization Details Last Modified Time Details Appointments None recorded . Lab culture, wound - left hand wound 2018 019 [facility], [address] [place], [address], 9 11:05:48 PSA, serum or plasma 2017 018 [facility], [address] [place], [address], 8 14:49:03 glucose, fasting, QN, serum or plasma 2017 018 [facility], [address] [place], [address], 8 14:53:18 choleste rol, total, serum 2017 018 [facility], [address] [place], [address], 8 14:53:20 creatini ne, serum or plasma 2017 018 [facility], [address] [place], [address], 8 14:53:18 glucose, QN [mass/vo lume], serum or plasma 2016 017 [facility], [address] [place], [address], 7 20:06:25 creatini ne, serum or plasma 2016 017 [facility], [address] [place], [address], 7 20:06:26 PSA, serum or plasma 2016 017 [facility], [address] [place], [address], 7 09:29:28 choleste rol, total, serum 2016 017 [facility], [address] [place], [address], 7 20:06:27 CBC w/ manual diff 2015 016 [email or web address] Not available 7 08:38:29 CMP, serum or plasma 2015 016 [email or web address] Not available 7 08:38:29 lipid panel, serum 2015 016 [email or web address] [id number] Not available 6 04:16:11 lipid panel, serum 2015 016 [email or web address] [facility], [address] [place], [address], 7 08:38:29 bun/crea tinine, ratio, serum 2015 016 DBA_PATCH_[email or web address] [id number] [facility], [address] [place], [address], 6 04:16:14 glucose, QN [mass/vo lume], serum or plasma 2015 016 DBA_PATCH_[email or web address] [id number] [facility], [address] [place], [address], 6 04:16:57 vitamin D, 25-hydro xy, total, serum 2015 016 [facility], [address] [place], [address], 7 08:38:29 PSA, serum or plasma 2015 016 DBA_PATCH_[email or web address] [id number] [facility], [address] [place], [address], 6 04:16:11 choleste rol, total, serum 2015 016 [facility], [address] [place], [address], 7 08:38:29 Referral hand surgeon referral 2018 019 LACEY Hairston DO, [address] [place], [address], 9 12:04:48 Procedures None recorded . Surgeries None recorded . Imaging XR, hand, 2 view 2018 019 [facility] (Central Scheduling), [address] [place], [address], 9 14:02:03 electroc adamdiogra m 2016 017 rickie In-Office Order, Internal Use Only DO Not Attach Compendium DO Not Attach Compendium, Do Not Delete/merge, [id number] 7 08:12:40 Medication Orders doxycycl ine hyclate 100 mg tablet 2018 019 [email or web address] [facility], [address] [place], [address], 9 09:24:46 triamcin olone acetonid e 0.1 % topical cream 2017 018 INTERFACE [id number], [address], [place], [id number], 8 09:24:43 Patient TargetsNo targets recorded. Patient Instructions Encounter Date Encounter Id Patient Instructions Last Modified By Organization Details Last Modified Time 04/14/2017 [id number] heart murmur: care instructions [email or web address] Not available 04/18/2017 09:50:14 04/17/2018 [id number] Eczema: Care Instructions [email or web address] Not available 04/17/2018 09:24:40 10/12/2018 [id number] tick bite: care instructions [email or web address] Not available 10/12/2018 15:25:50 12/21/2018 [id number] X-ray hand to rule out foreign body. You can go to either [place] or [place] as a walk-in patient during normal business [...] BUN 15 mg/dL 6-21 normal Not Available [address] [place] [address], [address], 01/15/2016 19:46:12 01/15/2001/15/2016 bun/c reati nine, ratio , serum creatinine 1.06 mg/dL 0.0-1. 3 normal Not Available [address] [place] [address], [address], 01/15/2016 19:46:12 01/15/2001/15/2016 bun/c reati nine, ratio , serum glomerular [...] G5 (kidn ey failu re). Not Available [address] [place] [address], [address], 01/15/2016 19:46:12 01/15/2001/15/2016 gluco se, QN [mass /volu me], serum or plasm a glucose 86 mg/dL 70-109 normal Not Available [address] [place] [address], [address], 01/15/2016 19:46:13 01/15/2001/15/2016 lipid panel , serum cholesterol 182 mg/dL normal CORRIE ABLE <200 Corrie able 200-2 39 Borde rline High >=240 High Not Available [address] [place] [address], [address], 01/15/2016 19:46:13 01/15/2001/15/2016 lipid panel , serum triglyceride 82 mg/dL normal OSPHIE L <=150 Sophie l 150-1 99 Borde rline High 200-4 99 High >=500 Very High Not Available [address] [place] [address], [address]75, 01/15/2016 19:46:13 01/15/20 16 01/15/2016 lipid panel , serum HDL 54 mg/dL normal <40 Low >=60 Optim al Not Available [address] [place] [address], [address], 01/15/2016 19:46:13 01/15/20 16 01/15/2016 lipid panel , serum calculated LDL 112 mg/dL normal NEAR OPTIM AL <100 Optim al 100-1 29 Near optim al 130-1 59 Borde rline High 160-1 89 High >=190 Very High The above class ifica tions are based on the recom menda tions of the NCEP Exper t Panel , (ATP III, 2001) . Not Available [address] [place] [address], 10[address], 01/15/2016 19:46:13 01/15/20 16 01/16/2016 PSA, serum or plasm a prostatic specific Ag 1.07 NG/mL 0-4 normal PSA was perfo rmed using the ACCES SII Immun oassa y metho d. Value s obtai lilo from diffe rent assay metho ds canno t be used inter rossi eamindyy . PSA level s, regar dless of value , shoul d not be inter prete d as absol la jolla evide nce of the prese nce or absen ce of disea se. Not Available [address] [place] [address], [address], 01/16/2016 13:00:15 04/14/20 17 04/14/2017 gluco se, QN [mass /volu me], serum or plasm a glucose 64 mg/dL 70-109 low Not Available [address] [place] [address], 7[address], 04/14/2017 20:06:25 04/14/20 17 04/14/2017 creat inine , serum or plasm a creatinine 1.09 mg/dL 0.0-1. 3 normal Not Available [address] [place] [address], 20[address], 04/14/2017 20:06:26 04/14/20 17 04/14/2017 creat inine [...] G5 (kidn ey failu re). Not Available [address] [place] [address] Draw[address] [place] [address], [address], 04/14/2017 20:06:26 04/14/20 17 04/14/2017 vu stero l, total , serum cholesterol 154 mg/dL normal CORRIE ABLE <200 Corrie able 200-2 39 Borde rline High >=240 High The above class ifica tions are based on the recom menda tions of the NCEP Exper t Panel , (ATP III, 2001) . Not Available [address] [place] [address] Drawing [address] [place] [address], [address], 04/14/2017 20:06:27 04/14/20 17 04/15/2017 PSA, serum [...] not be inter prete d as absol la jolla evide nce of the prese nce or absen ce of disea se. Not Available [address] [place] [address] Draw[address] [place] [address], [address], 04/15/2017 09:29:28 04/17/20 18 04/17/2018 PSA, serum or plasm a PSA screen 0.92 NG/mL 0-4 normal Value s obtai liol from diffe rent assay metho ds canno t be used inter [facility] . PSA level s, regar dless of value , shoul d not be inter prete d as absol la jolla evide nce of the prese nce or absen ce of disea se. Not Available [address] [place] [address], [address], 04/17/2018 14:49:02 04/17/20 18 04/17/2018 gluco se, fasti ng, QN, serum or plasm a glucose, fasting 95 mg/dL 70-100 normal Not Available [address] [place] [address] Drawing [address] [place] [address], [address], 04/17/2018 14:53:18 04/17/20 18 04/17/2018 creat inine , serum or plasm a creatinine 1.04 mg/dL 0.0-1. 3 normal Not Available [address] [place] [address], 24[address], 04/17/2018 14:53:18 04/17/20 18 04/17/2018 creat inine [...] G5 (kidn ey failu re). Not Available [address] [place] [address], 13607, 04/17/2018 14:53:18 04/17/20 18 04/17/2018 vu stero l, total , serum cholesterol 190 mg/dL normal CORRIE ABLE <200 Corrie able 200-2 39 Borde rline High >=240 High The above class ifica tions are based on the recom menda tions of the NCEP Exper t Panel , (ATP III, 2001) . Not Available [address] [place] [address], 24[address], 04/17/2018 14:53:19 12/22/19 19 12/22/2018 cultu re, wound gram stain GRAM STAIN RESULT normal Not Available [address] [place] [address], 207[address], 12/23/2018 13:02:59 12/22/1912/22/2018 cultu re, wound gram stain NO CELLS OR ORGANI SMS SEEN normal Not Available [address] [place] [address], [address], 12/23/2018 13:02:59 12/22/1912/22/2018 cultu re, wound gram stain Not Available [address] [place] [address], [address], 12/23/2018 13:02:59 12/22/1912/23/2018 cultu re, wound wound culture ORGANI SM 1: STAPHY LOCOCC US INTERM EDIUS Not Available [address] [place] [address] [place] [address], [address], 12/23/2018 13:02:59 12/22/1912/23/2018 cultu re, wound wound culture 2+ Not Available [address] [place] [address] [place] [address], [address], 12/23/2018 13:02:59 12/22/19 19 12/23/2018 cultu re, wound wound culture Not Available [address] [place] [address] [place] [address], [address]23[address], 12/23/2018 13:02:59 12/22/1912/23/2018 cultu re, wound wound culture STAPHY LOCOCC US INTERM EDIUS: GRAM POS BP COMBO 20-MSC AN Not Available [address] [place] [address], 31848, 12/23/2018 13:02:59 12/22/1912/23/2018 cultu re, wound wound culture TRIMET HOPRIM /SULFA METHOX AZOLE S susceptib le Not Available [address] [place] [address], 843[address], 12/23/2018 13:02:59 12/22/1912/23/2018 cultu re, wound wound culture AMPICI LLIN R resistant Not Available [address] [place] [address], 16842, 12/23/2018 13:02:59 12/22/1912/23/2018 cultu re, wound wound culture CEPHAL OTHIN S susceptib le Not Available [address] [place] [address], 67[address], 12/23/2018 13:02:59 12/22/1912/23/2018 cultu re, wound wound culture CIPROF LOXACI N S susceptib le Not Available [address] [place] [address], 31524, 12/23/2018 13:02:59 12/22/1912/23/2018 cultu re, wound wound culture CLINDA MYCIN S susceptib le Not Available [address] [place] [address], 30[address], 12/23/2018 13:02:59 12/22/1912/23/2018 cultu re, wound wound culture ERYTHR OMYCIN S susceptib le Not Available [address] [place] [address], 16828, 12/23/2018 13:02:59 12/22/1912/23/2018 cultu re, wound wound culture GENTAM ICIN S susceptib le Not Available [address] [place] [address], 54273, 12/23/2018 13:02:59 12/22/1912/23/2018 cultu re, wound wound culture OXACIL ISABEL S susceptib le Not Available [address] [place] [address], 70156, 12/23/2018 13:02:59 12/22/1912/23/2018 cultu re, wound wound culture PENICI LLIN R resistant Not Available [address] [place] [address], 48151, 12/23/2018 13:02:59 12/22/1912/23/2018 cultu re, wound wound culture TETRAC YCLINE R resistant Not Available [address] [place] [address], 58178, 12/23/2018 13:02:59 12/22/1912/23/2018 cultu re, wound wound culture VANCOM YCIN S susceptib le Not Available [address] [place] [address], 10938, 12/23/2018 13:02:59 12/22/1912/23/2018 cultu re, wound wound culture Not Available [address] [place] [address], [address], 12/23/2018 13:02:59 04/18/20 17 04/14/2017 elect rocar diogr am No observ ation record ed. [facility] In-Office Order Internal Use Only DO Not Attach Compendium DO Not Attach Compendium, Do Not Delete/merge, [id number] 04/18/2017 09:30:01 12/22/19 19 12/21/2018 hand [facility] justin TORREZ RN [facility] ALON IMAGIN G CTR DIAGNO STIC IMAGIN G DEPART MENT [address] [facility]. [id number] - Prernaen t: MAYRA PEPPER Phone: Exam Date:0 9 Exam: HAND & WRIST 3 VIEW LT Attend azul Fontaine:MIKE KINGSTON :[birth year] Age/Se x: 38/M Elen hansen M.D.:MIKE KINGSTON ECammy Attend azul Fontaine: Gurmeet Fontaine: JUAN M MAN MD X-Ray #: [id number] Locati on: RAD.NA Other Locati on: [...] n: [id number] 0A Access ion Number : [id number] Transc ribed by: PS Interp reting Physic belinda: PARIS VOSS MD Electr onical ly Signed by: JUDIE VOSS MD on 1331 Rec'd in [facility] on : 1331 Techno logist : CP Exam CPT #: ,Order #: [id number] Report #: [id number] Med Rec#:[id number] Report Status : Signed [facility] (Radiology) [address] [place] [address], [address], 12/21/2018 15:43:09 12/22/19 19 12/21/2018 XR, hand, 2 view No observ ation record ed. [facility] (Central Scheduling) [address] [place] [address], [address], 12/21/2018 14:02:03 01/27/20 19 12/21/2018 XR, hand, 2 view No observ ation record ed. [facility] (Central Scheduling) [address] [place] [address], [address], 01/26/2019 13:38:10 Result Notes None recorded. Problems No Known Problems Procedures Surgical History Date Name Laterality Status Provider Name and Address Organization Details Recorded Time Tonsillectomy completed Juan M moran MD. [address] [place] [address], [phone] [employer] 04/17/2018 09:10:52 Imaging Results None recorded. Procedure Notes None recorded. Medical Equipment None [...] Available Vitals Date Recorded Body height Body mass index (BMI) Body weight Heart rate Oxygen saturation Oxygen saturation in Arterial blood by Pulse oximetry Body temperature Systolic And Diastolic Provider Name and Address Organization Details Last Updated DateTime 9 182.88 cm 27.3 kg/m2 05973.1 7 g 79 /min 99 % 99 % 98.2 [degF] 120/80 mm[Hg] dennis carey [employer] 9 15:13:45 Date Recorded Body height Body mass index (BMI) Body weight Heart rate Oxygen saturation Oxygen saturation in Arterial blood by Pulse oximetry Systolic And Diastolic Provider Name and Address Organization Details Last Updated DateTime 9 182.88 cm 26.9 kg/m2 75801.0 9 g 66 /min 96 % 96 % 118/76 mm[Hg] Susy baig [facility] [employer] [facility] 9 09:18:20 Date Recorded Body height Body weight Body mass index (BMI) Heart rate Oxygen saturation Oxygen saturation in Arterial blood by Pulse oximetry Body temperature Systolic And Diastolic Provider Name and Address Organization Details Last Updated DateTime 6 182.88 cm 03640.2 2 g 24.5 kg/m2 52 /min 99 % 99 % 97.6 [degF] 132/72 mm[Hg] Isamar Mitchell LPN [facility] [employer] [facility] 6 14:30:46 Date Recorded Body height Body mass index (BMI) Body weight Heart rate Oxygen saturation Oxygen saturation in Arterial blood by Pulse oximetry Systolic And Diastolic Provider Name and Address Organization Details Last Updated DateTime 7 182.88 cm 25.5 kg/m2 79006.3 7 g 58 /min 98 % 98 % 120/80 mm[Hg] [facility] [employer] [facility] 7 14:14:07 Date Recorded Body height Body mass index (BMI) Body weight Heart rate Oxygen saturation Oxygen saturation in Arterial blood by Pulse oximetry Systolic And Diastolic Provider Name and Address Organization Details Last Updated DateTime 8 182.88 cm 27.4 kg/m2 88018.6 6 g 63 /min 96 % 96 % 116/82 mm[Hg] [facility] [employer] [facility] 8 09:02:30 Social History None recorded. 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 Family History Relationship Description Onset Age of this Age Resolved Age Notes LastModified by Organization Details LastModified Time Father Carcinoma of prostate ajoslin Not available 2015 14:11:44 Notes:Kristopher has no children M aternal grandfather is alive and quite well at advanced age. Medical History No medical history recorded. Immunizations Vaccine Type Date Status Note Provider Nam e and Address Organization Details Recorded Time Influenza, split virus, quadrivalent, preservative 0 completed SHELTON Beckham [place] - [employer] [facility] 07/27/2019 10:12:56 Past Encounters Encounter ID Performer Location Encounter Start Date Encounter Closed Date Diagnosis/Indication Diagnosis SNOMED-CT Code Diagnosis ICD10 Code Diagnosis Note [id number] Juan M Man MD. [facility] [employer] [address] [place] [phone] 01/15/2016 14:19:29 01/15/2016 16:57:06 Adult health examination 901076007 Z00.00 General health remains excellent and he has not smoked for quite a while now. We will check routine lab studies. Continue healthy lifestyle and close followup here and with other providers. Call back if symptoms change or worsen, or if additional problems develop. Screening procedure 2012 5006 Z13.9 Vitamin D deficiency 347 84023 E55.9 Hyperlipid emia screening 108078017 Z13.220 Screening for disorder 554357985 Z13.9 [id number] Juan M Man MD. [facility] [employer] [address] [place] [phone] 04/14/2017 14:04:38 04/14/2017 14:48:41 Adult health examination 602516511 Z00.00 General health remains excellent and he has not smoked for quite a while now. Will check routine lab studies. Continue healthy lifestyle and routine followup here and with other providers. Call back if symptoms change or worsen, or if additional problems develop. Screening procedure 20126 Z13.9 Father has had prostate cancer Murmur 679628907 R01.1 Most likely functional murmur [id number] Juan M Man MD. [facility] Wilson [employer] [address] [place] [phone] 04/17/2018 08:58:28 04/17/2018 09:51:16 Adult health examination 843592225 Z00.00 General health remains excellent and he has not smoked for quite a while now. Will check routine lab studies. Continue healthy lifestyle and routine followup here and with other providers. Avoid further weight gain Call back if symptoms change or worsen, or if additional problems develop. Family his tory of malignant neoplasm of prostate 559963949 Z80.42 Atopic dermatitis 421534 01 L20.9 Minor findings consistent with atopic dermatitis exacerbate d by dryness [id number] Joey Higginbotham MD. [facility] [employer] [address] [place] [phone] 10/12/2018 15:07:47 10/12/2018 15:27:01 Tick bite 70991084 W57.XXXA suspect lyme tick bite [id number] Kameron Bryant MD. [facility] [employer] [address] [place] [address] 12/21/2018 09:10:58 12/21/2018 09:41:07 Soft tissue lesion of wrist and hand 221321588 M79.9 Health Concerns Section Related Observation LastModified by Organization Detai ls LastModified Time None Recorded Concern Status LastModified by Organization Details LastModified Time None Recorded Advance Directives Directive None Recorded Payers Insurance Date Sequence Insurance Name Policy Number Policy Valenzuela Covered Member ID Valenzuela Member ID Guarantor Name 12/21/2018 1 [employer] [facility] - [facility] ([id number]) [id number] Anthony Pepper [id number] Anthony Pepper 01/18/2017 1 [facility] [place] [place] Anthony Pepper [id number] Anthony Pepper 01/15/2016 1 [facility] [place] [place] Anthony Pepper [id number] Anthony Pepper 01/13/2016 1 *SELF PAY* Aruna Pepper Notes Date Note Type Note Provider Name and Address Organization Details Recorded Time 01/15/2016 text/html Nothing hurts. H as not been ill. No injuries. Feels well today. Medical record and laboratory results reviewed No complaints of any kind. No problems related to past sports injuries. Juan M Man MD. [address] [place] [address], [phone], [employer] 01/18/2016 14:17:33 04/14/2017 text/html Comprehensive review Nothing hurts. Has not been ill. No injuries. Feels well today. Medical record and laboratory results and consultations and imaging reviewedHeart murmur noted in the past. He recalls having echocardiogram which revealed no worrisome findings No prescription medications Athletic. Continues to play basketball Juan M Man MD. [address] [place] [address], [phone], [employer] 04/17/2017 15:55:23 04/17/2018 text/html Comprehensive review Nothing hurts. Has not been ill. No injuries. Feels well today. Medical record and laboratory results and consultations and imaging reviewed. No prescription medications Athletic. Continues to play basketball. Has some rash in the popliteal area. No particular history of any skin disorders Juan M Man MD. [address] [place] [address], [phone], [employer] 04/18/2018 16:02:14 10/12/2018 text/html patient had a [...] did see the tick. Joey Higginbotham MD. [address] [place] [address], [phone], [facility] [employer] 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 Amber Garcia NP [address] [place] [address], [phone], [employer] 12/21/2018 09:46:57
== END 2024-11-14 16:20 | disposition home or self-care (01) ==
LOC: HO.HUSH 14:56
PROVIDERS: Visit Provider Urology
DX: Z30.2 Encounter for sterilization (principal); R45.89 Other symptoms and signs involving emotional state
CPT/HCPCS: 55250

== ENCOUNTER → 2024-11-14 14:56 | Outpatient (BNVA) | payer BC, SELFPAY | PROVIDERS: Visit Provider Urology | DX: Z30.2 Encounter for sterilization (principal); R45.89 Other symptoms and signs involving emotional state | CPT/HCPCS: 55250 ==

== ENCOUNTER 2025-02-27 08:30 | Outpatient (AMB) | payer BC, SELFPAY ==
--- NOTE | 2025-02-27 08:32 | A.OFFVIS_ITS ---
Intake Visit Reasons: semen analysis Intake Note: Patient is present for Vasectomy follow up Vasectomy performed on 11/14/2024 Urology Med: None Antibiotic Allergies:None Blood Thinners: None Car Wash Manager Required: No Accompanied by: Self / Same As Patient Allergies No Known Allergies Allergy (Verified 02/27/25 08:36) HPI Comments Details: Anthony is a very pleasant 44-year-old male patient. He presents to the office today for - vasectomy follow-up No sperm seen on high-powered field evaluation Minimal issues postprocedure Vasectomy follow-up The patient presents for vasectomy follow-up.? He is currently He has fathered -2 children, with a single partner The youngest child is - will be 2 years old in October His partner is aware and permissive for a vasectomy Current form of control is condoms Current employment is works at a [employer] Surgical History (Updated 02/27/25 @ 08:36 by Alicja Moncada Kendal) History of vasectomy Review of Systems Const Denies chills and Denies fever(s) Card Reports no additional complaints and Denies syncope Resp Denies cough GI Denies abdominal pain and Denies heartburn Reports as per HPI and Denies change in libido Neuro Denies syncope Psych Denies change in libido Endo Denies change in libido Physical Exam Const General: cooperative, healthy appearing, comfortable and no acute distress Orientation/consciousness: patient oriented x3 HEENT Face and sinus: Yes normal facial exam Mouth: moist mucous membranes Neck Neck: Yes normal visual inspection, Yes full ROM and Yes trachea midline Chest Chest palpation & inspection: normal inspection of the chest Resp Effort & Inspection: normal respiratory effort, able to speak in complete sentences and no respiratory distress GI Inspection: Yes normal to inspection Back/Spine/Pelvis Cervical Spine: normal cervical lordosis Thoracic/Lumbar Spine: thoracic and lumbar spine normal to inspection Skin General skin exam: no rashes or lesions noted Neuro General: patient oriented x3, gait normal, tone normal and moves all extremities Extrem General: Yes normal to inspection and Yes capillary refill normal Assessment & Plan Assessment & Plan (1) Anxiety about health: Code(s): R45.89 - Other symptoms and signs involving emotional state Category: Medical Plan P.r.n. follow-up Patient Instructions: This note is constructed using voice recognition software. While every effort has been made to ensure accuracy animal laboratory technician errors may have been included. Imaging studies, laboratory and physical exam results were discussed and reviewed in detail. No major barriers to patient understanding were identified. An opportunity to ask questions regarding the treatment plan was provided. All questions were answered. The patient expressed understanding and agreement with the above treatment plan. The patient is aware they should contact our office by phone for worsening of their current condition or the appearance of new urologic symptoms. Compliance is encouraged with any medications and followup testing that is ordered. It is a privilege to participate in the urologic care of your patient. If you have any questions or concerns regarding treatment for the above conditions, or other urologic issues, please do not hesitate to contact me. The office telephone contact is [phone]. Sincerely, Dr Isauro Courtney MD, [facility] - Urology Compassionate Specialist Care for the Genitourinary System Coding Level of Care Code Est Pt Level 3 (73581) Diagnoses Anxiety about health R45.89
--- OUTSIDE RECORDS SUMMARY | 2025-02-27 09:03 | XMS_ITS | Clinical Summary ---
Author Organization [facility] Address [address] [place] [phone] Phone Care Team Providers Care Private Watchman Name Role Phone Pcp, Unknown Primary Care Provider Unavailabl e Allergies No known active allergies Medications No known medications Active Problems No known active problems Immunizations No known immunizations Social History Tobacco Use Types Packs/Day Years Used Date Smoking Tobacco: Former Cigarettes 0.3 10 S tarted: 05/02/2002 Smokeless Tobacco: Never Tobacco Cessation:Counseling Given: Not Answered Education Answer Date Recorded Are you interested in more education? Not on jose e 08/28/2022 Are you concerned about learning? Not on file 08/28/2022 No 08/28/2022 No 08/28/2022 Digital Access Answer Date Recorded No 09/26/2022 No 09/26/2022 Reliable internet access at home? Not on file 09/26/2022 Device with a working camera? Not on file Intimate Partner Violence Answer Date R ecorded Are you denied basic needs s uch as food, clothing, or medical care? No 06/18/2024 In the past 12 months have y ou been in a relationship with a person who hurts, threatens, or tries to control you? No 06/18/2024 Are you denied basic needs s uch as food, clothing, or medical care? No 06/18/2024 In the past 12 months have y ou been in a relationship with a person who hurts, threatens, or tries to control you? No 06/18/2024 Sex and Gender Information Value Date Recorded Sex Assigned at Not on file Legal Sex Male 10:24 AM EDT Gender Identity Not on file Sexual Orientation Not on file Last Filed Vital Signs Vital Sign Reading Time Taken Comments Blood Pressure 123/80 06/18/2024 4:30 PM EST Pulse 64 06/18/2024 4:30 PM EST Temperature 36.9 C (98.4 F) 06/18/2024 4:30 PM EST Respiratory Rate 16 06/18/2024 4:30 PM EST Oxygen Saturation 97% 06/18/2024 4:30 PM EST Inhaled Oxygen Concentration - - Weight 90.7 kg (200 lb) 06/18/2024 11:48 AM EST Height 185.4 cm (6' 1 ) 06/18/2024 11:48 AM EST Body Mass Index 26.39 06/18/2024 11:48 AM EST Plan of Treatment Health Maintenance Due Date Last Done Comments LIPID PANEL 1982 DEPRESSION SCREENING 1994 SMOKING Hx and SMOKELESS TOBACCO SCREENING 1995 HEPATITIS C SCREENING 02/29/2000 HIV ONE-TIME SCREENING (18-6 5 YEARS) 02/29/2000 SCREENING FOR DIABETES 2017 INFLUENZA VACCINE (#1) 2024 06/04/2019 COVID-19 VACCINE (3 2024-2 6 season) 2024 09/21/2020, 08/31/2020 Adult Td,Tdap Booster 10/22/2030 10/22/2020 HEPATITIS A VACCINES Aged Out No long er eligible based on patient's age to complete this topic HIB VACCINES Aged Out No longer eligi ble based on patient's age to complete this topic MENINGOCOCCAL VACCINES (ACWY) Aged Out No longer eligible based on patient's age to complete this topic MENINGOCOCCAL VACCINES (B) Aged Out N o longer eligible based on patient's age to complete this topic PNEUMOCOCCAL VACCINES (0-49 years) Aged Out No longer eligible b ased on patient's age to complete this topic Medical Devices Not on file Additional Health Concerns Infection Onset 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 06/14/2024 Insurance [facility] [place] [address] [place] [address] [place] [address] [place] [address] [place] [address] [place] [address] PPO EPO [facility] PPO EPO [facility] PPO EPO Member Subscriber Plan / Payer (Ef fective 2023-Present) Name:Anthony Pepper Relation to Subscriber:Self Name:Anthony Pepper Payer ID:[id number] (NAIC) Type:PPO Address: [address] Care Teams Private Watchman Relationship Specialty Start Date End Date Pcp, Unknown PCP - General 06/18/24 Additional Source Comments The information contained in this document represents components of the legal health record. It is not the complete legal health record.[facility]
--- OUTSIDE RECORDS SUMMARY | 2025-02-27 09:03 | XMS_ITS | Data Portability ---
Author Organization [place] - [facility], [facility] [employer] Install[employer] Address [address] [place] [address] Assessment No assessment recorded. Plan of Treatment Reminders Order Date Submit Date Provider Last Modified By Organization Details Last Modified Time Details Appointments None recorded . Lab culture, wound - left hand wound 2018 019 [facility], [address] [place], [address], 9 11:05:48 PSA, serum or plasma 2017 018 [facility], [address] [place], [address], 8 14:49:03 glucose, fasting, QN, serum or plasma 2017 018 [facility], [address] [place], [address], 8 14:53:18 choleste rol, total, serum 2017 018 [facility], [address] [place], [address], 8 14:53:20 creatini ne, serum or plasma 2017 018 [facility], [address] [place], [address], 8 14:53:18 glucose, QN [mass/vo lume], serum or plasma 2016 017 [facility], [address] [place], [address], 7 20:06:25 creatini ne, serum or plasma 2016 017 [facility], [address] [place], [address], 7 20:06:26 PSA, serum or plasma 2016 017 [facility], [address] [place], [address], 7 09:29:28 choleste rol, total, serum 2016 017 [facility], [address] [place], [address], 7 20:06:27 CBC w/ manual diff 2015 016 [email or web address] Not available 7 08:38:29 CMP, serum or plasma 2015 016 rlangenback Not available 7 08:38:29 lipid panel, serum 2015 016 [email or web address] [id number] Not available 6 04:16:11 lipid panel, serum 2015 016 [email or web address] [facility], [address] [place], [address], 7 08:38:29 bun/crea tinine, ratio, serum 2015 016 [email or web address] [id number] [facility], [address] [place], [address], 6 04:16:14 glucose, QN [mass/vo lume], serum or plasma 2015 016 DBA_PATCH_[email or web address] [id number] [facility], [address] [place], [address], 6 04:16:57 vitamin D, 25-hydro xy, total, serum 2015 016 [facility], [address] [place], [address], 7 08:38:29 PSA, serum or plasma 2015 016 DBA_PATCH_[email or web address] [id number] [facility], [address] [place], [address], 6 04:16:11 choleste rol, total, serum 2015 016 [facility], [address] [place], [address], 7 08:38:29 Referral hand surgeon referral 2018 019 LACEY Hairston DO, [address] [place], [address], 9 12:04:48 Procedures None recorded . Surgeries None recorded . Imaging XR, hand, 2 view 2018 019 [facility] (Central Scheduling), [address] [place], [address], 9 14:02:03 electroc adamdiogra m 2016 017 rickie In-Office Order, Internal Use Only DO Not Attach Compendium DO Not Attach Compendium, Do Not Delete/merge, [id number] 7 08:12:40 Medication Orders doxycycl ine hyclate 100 mg tablet 2018 019 [email or web address] [facility], [address] [place], [address], 9 09:24:46 triamcin olone acetonid e 0.1 % topical cream 2017 018 INTERFACE [id number], [address], [place], [id number], 8 09:24:43 Patient TargetsNo targets recorded. Patient Instructions Encounter Date Encounter Id Patient Instructions Last Modified By Organization Details Last Modified Time 04/14/2017 [id number] heart murmur: care instructions [email or web address] Not available 04/18/2017 09:50:14 04/17/2018 [id number] Eczema: Care Instructions [email or web address] Not available 04/17/2018 09:24:40 10/12/2018 [id number] tick bite: care instructions [email or web address] Not available 10/12/2018 15:25:50 12/21/2018 [id number] X-ray hand to rule out foreign body. You can go to either [place] or [place] as a walk-in patient during normal business [...] BUN 15 mg/dL 6-21 normal Not Available [address] [place] [address], [address], 01/15/2016 19:46:12 01/15/2001/15/2016 bun/c reati nine, ratio , serum creatinine 1.06 mg/dL 0.0-1. 3 normal Not Available [address] [place] [address], [address], 01/15/2016 19:46:12 01/15/2001/15/2016 bun/c reati nine, ratio [...] G5 (kidn ey failu re). Not Available [address] [place] [address], [address], 01/15/2016 19:46:12 01/15/2001/15/2016 gluco se, QN [mass /volu me], serum or plasm a glucose 86 mg/dL 70-109 normal Not Available [address] [place] [address], [address], 01/15/2016 19:46:13 01/15/2001/15/2016 lipid panel , serum cholesterol 182 mg/dL normal CORRIE ABLE <200 Corrie able 200-2 39 Borde rline High >=240 High Not Available [address] [place] [address], [address], 01/15/2016 19:46:13 01/15/2001/15/2016 lipid panel , serum triglyceride 82 mg/dL normal SOPHIE L <=150 Sophie l 150-1 99 Borde rline High 200-4 99 High >=500 Very High Not Available [address] [place] [address], [address], 01/15/2016 19:46:13 01/15/20 16 01/15/2016 lipid panel , serum HDL 54 mg/dL normal <40 Low >=60 Optim al Not Available [address] [place] [address], [address], 01/15/2016 19:46:13 01/15/20 16 01/15/2016 lipid panel , serum calculated LDL 112 mg/dL normal NEAR OPTIM AL <100 Optim al 100-1 29 Near optim al 130-1 59 Borde rline High 160-1 89 High >=190 Very High The above class ifica tions are based on the recom menda tions of the NCEP Exper t Panel , (ATP III, 2001) . Not Available [address] [place] [address], [address], 01/15/2016 19:46:13 01/15/20 16 01/16/2016 PSA, serum [...] not be inter prete d as absol chickaloon evide nce of the prese nce or absen ce of disea se. Not Available [address] [place] [address], [address], 01/16/2016 13:00:15 04/14/20 17 04/14/2017 gluco se, QN [mass /volu me], serum or plasm a glucose 64 mg/dL 70-109 low Not Available [address] [place] [address], [address], 04/14/2017 20:06:25 04/14/20 17 04/14/2017 creat inine , serum or plasm a creatinine 1.09 mg/dL 0.0-1. 3 normal Not Available [address] [place] [address], [address], 04/14/2017 20:06:26 04/14/20 17 04/14/2017 creat inine [...] GFR categ ories shoul d be assig llio as: eGFR 45-59 = G3a (mild ly to moder ately decre ased) , eGFR 30-44 = G3b (mode ratel y to sever amarilis decre ased) , eGFR 15-29 G4 (nuris rely decre ased) , eGFR< 15 G5 (kidn ey failu re). Not Available [address] [place] [address] Draw[address] [place] [address], [address], 04/14/2017 20:06:26 04/14/20 17 04/14/2017 vu stero l, total , serum cholesterol 154 mg/dL normal CORRIE ABLE <200 Corrie able 200-2 39 Borde rline High >=240 High The above class ifica tions are based on the recom menda tions of the NCEP Exper t Panel , (ATP III, 2001) . Not Available [address] [place] [address] Draw[address] [place] [address], [address], 04/14/2017 20:06:27 04/14/20 17 04/15/2017 PSA, serum [...] not be inter prete d as absol chickaloon evide nce of the prese nce or absen ce of disea se. Not Available [address] [place] [address] Draw[address] [place] [address], [address], 04/15/2017 09:29:28 04/17/20 18 04/17/2018 PSA, serum or plasm a PSA screen 0.92 NG/mL 0-4 normal Value s obtai lilo from diffe rent assay metho ds canno t be used inter [facility] . PSA level s, regar dless of value , shoul d not be inter prete d as absol chickaloon evide nce of the prese nce or absen ce of disea se. Not Available [address] [place] [address], [address], 04/17/2018 14:49:02 04/17/20 18 04/17/2018 gluco se, fasti ng, QN, serum or plasm a glucose, fasting 95 mg/dL 70-100 normal Not Available [address] [place] [address] Draw[address] [place] [address], [address], 04/17/2018 14:53:18 04/17/20 18 04/17/2018 creat inine , serum or plasm a creatinine 1.04 mg/dL 0.0-1. 3 normal Not Available [address] [place] [address], [address], 04/17/2018 14:53:18 04/17/20 18 04/17/2018 creat inine [...] G5 (kidn ey failu re). Not Available [address] [place] [address], [address], 04/17/2018 14:53:18 04/17/20 18 04/17/2018 vu stero l, total , serum cholesterol 190 mg/dL normal CORRIE ABLE <200 Corrie able 200-2 39 Borde rline High >=240 High The above class ifica tions are based on the recom menda tions of the NCEP Exper t Panel , (ATP III, 2001) . Not Available [address] [place] [address], [address], 04/17/2018 14:53:19 12/22/19 19 12/22/2018 cultu re, wound gram stain GRAM STAIN RESULT normal Not Available [address] [place] [address], [address], 12/23/2018 13:02:59 12/22/1912/22/2018 cultu re, wound gram stain NO CELLS OR ORGANI SMS SEEN normal Not Available [address] [place] [address], [address], 12/23/2018 13:02:59 12/22/1912/22/2018 cultu re, wound gram stain Not Available [address] [place] [address], [address], 12/23/2018 13:02:59 12/22/1912/23/2018 cultu re, wound wound culture ORGANI SM 1: STAPHY LOCOCC US INTERM EDIUS Not Available [address] [place] [address] [place] [address], [address], 12/23/2018 13:02:59 12/22/1912/23/2018 cultu re, wound wound culture 2+ Not Available [address] [place] [address] [place] [address], [address], 12/23/2018 13:02:59 12/22/19 19 12/23/2018 cultu re, wound wound culture Not Available [address] [place] [address] [place] [address], [address], 12/23/2018 13:02:59 12/22/1912/23/2018 cultu re, wound wound culture STAPHY LOCOCC US INTERM EDIUS: GRAM POS BP COMBO 20-MSC AN Not Available [address] [place] [address], [address], 12/23/2018 13:02:59 12/22/1912/23/2018 cultu re, wound wound culture TRIMET HOPRIM /SULFA METHOX AZOLE S susceptib le Not Available [address] [place] [address], [address], 12/23/2018 13:02:59 12/22/1912/23/2018 cultu re, wound wound culture AMPICI LLIN R resistant Not Available [address] [place] [address], [address], 12/23/2018 13:02:59 12/22/1912/23/2018 cultu re, wound wound culture CEPHAL OTHIN S susceptib le Not Available [address] [place] [address], [address], 12/23/2018 13:02:59 12/22/1912/23/2018 cultu re, wound wound culture CIPROF LOXACI N S susceptib le Not Available [address] [place] [address], [address], 12/23/2018 13:02:59 12/22/1912/23/2018 cultu re, wound wound culture CLINDA MYCIN S susceptib le Not Available [address] [place] [address], [address], 12/23/2018 13:02:59 12/22/1912/23/2018 cultu re, wound wound culture ERYTHR OMYCIN S susceptib le Not Available [address] [place] [address], 150[address], 12/23/2018 13:02:59 12/22/1912/23/2018 cultu re, wound wound culture GENTAM ICIN S susceptib le Not Available [address] [place] [address], [address], 12/23/2018 13:02:59 12/22/1912/23/2018 cultu re, wound wound culture OXACIL ISABEL S susceptib le Not Available [address] [place] [address], [address], 12/23/2018 13:02:59 12/22/1912/23/2018 cultu re, wound wound culture PENICI LLIN R resistant Not Available [address] [place] [address], [address], 12/23/2018 13:02:59 12/22/1912/23/2018 cultu re, wound wound culture TETRAC YCLINE R resistant Not Available [address] [place] [address], [address], 12/23/2018 13:02:59 12/22/1912/23/2018 cultu re, wound wound culture VANCOM YCIN S susceptib le Not Available [address] [place] [address], [address], 12/23/2018 13:02:59 12/22/1912/23/2018 cultu re, wound wound culture Not Available [address] [place] [address], [address], 12/23/2018 13:02:59 04/18/20 17 04/14/2017 elect rocar diogr am No observ ation record ed. [facility] Order Internal Use Only DO Not Attach Compendium DO Not Attach Compendium, Do Not Delete/merge, [id number] 04/18/2017 09:30:01 12/22/19 19 12/21/2018 hand [facility] justin TORREZ RN [facility] ALON IMAGIN G CTR DIAGNO STIC IMAGIN G DE[facility] [address] [facility] [place] [address] - Prernaen t: MAYRA PEPPER Phone: Exam Date:0 9 Exam: HAND & WRIST 3 VIEW LT Attend azul Fontaine:IMKE KINGSTON :[birth year] Age/Se x: 38/M Elen hansen M.D.:MIKE KINGSTON ECammy Attend azul Fontaine: Gurmeet Fontaine: JUAN M MAN MD X-Ray #: [id number] Locati on: RAD.NA Other Locati on: [...] n: [id number] 0A Access ion Number : [id number] Transc ribed by: PS Interp reting Physic belinda: PARIS VOSS MD Electr onical ly Signed by: JUDIE VOSS MD on 1331 Rec'd in [facility] on : 1331 Techno logist : CP Exam CPT #: ,Order #: [id number] Report #: [id number] Med Rec#:[id number] Report Status : Signed [facility] (Radiology) [address] [place] [address], [address], 12/21/2018 15:43:09 12/22/19 19 12/21/2018 XR, hand, 2 view No observ ation record ed. [facility] (Central Scheduling) [address] [place] [address], [address], 12/21/2018 14:02:03 01/27/20 19 12/21/2018 XR, hand, 2 view No observ ation record ed. [facility] (Central Scheduling) [address] [place] [address], [address], 01/26/2019 13:38:10 Result Notes None recorded. Problems No Known Problems Procedures Surgical History Date Name Laterality Status Provider Name and Address Organization Details Recorded Time Tonsillectomy completed Juan M moran MD. [address] [place] [address], [phone] 04/17/2018 09:10:52 Imaging Results None recorded. Procedure [...] Updated DateTime 9 182.88 cm 27.3 kg/m2 70004.1 7 g 79 /min 99 % 99 % 98.2 [degF] 120/80 mm[Hg] dennis carey [facility] 9 15:13:45 Date Recorded Body height Body mass index (BMI) Body weight Heart rate Oxygen saturation Oxygen saturation in Arterial blood by Pulse oximetry Systolic And Diastolic Provider Name and Address Organization Details Last Updated DateTime 9 182.88 cm 26.9 kg/m2 82532.0 9 g 66 /min 96 % 96 % 118/76 mm[Hg] Susy baig [facility] 9 09:18:20 Date Recorded Body height Body weight Body mass index (BMI) Heart rate Oxygen saturation Oxygen saturation in Arterial blood by Pulse oximetry Body temperature Systolic And Diastolic Provider Name and Address Organization Details Last Updated DateTime 6 182.88 cm 02864.2 2 g 24.5 kg/m2 52 /min 99 % 99 % 97.6 [degF] 132/72 mm[Hg] Isamar Mitchell LPN [facility] 6 14:30:46 Date Recorded Body height Body mass index (BMI) Body weight Heart rate Oxygen saturation Oxygen saturation in Arterial blood by Pulse oximetry Systolic And Diastolic Provider Name and Address Organization Details Last Updated DateTime 7 182.88 cm 25.5 kg/m2 52756.3 7 g 58 /min 98 % 98 % 120/80 mm[Hg] [facility] 7 14:14:07 Date Recorded Body height Body mass index (BMI) Body weight Heart rate Oxygen saturation Oxygen saturation in Arterial blood by Pulse oximetry Systolic And Diastolic Provider Name and Address Organization Details Last Updated DateTime 8 182.88 cm 27.4 kg/m2 32444.6 6 g 63 /min 96 % 96 % 116/82 mm[Hg] [facility] 8 09:02:30 Social History None recorded. 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 Family History Relationship Description Onset Age of this Age Resolved Age Notes LastModified by Organization Details LastModified Time Father Carcinoma of prostate ajoslin Not available 2015 14:11:44 Notes:Kristopher has no children M aternal grandfather is alive and quite well at advanced age. Medical History No medical history recorded. Immunizations Vaccine Type Date Status Note Provider Patric mejia and Address Organization Details Recorded Time Influenza, split virus, quadrivalent, preservative 0 completed Page KristiSHELTON [place] - [employer] [facility] 07/27/2019 10:12:56 Past Encounters Encounter ID Performer Location Encounter Start Date Encounter Closed Date Diagnosis/Indication Diagnosis SNOMED-CT Code Diagnosis ICD10 Code Diagnosis IMO Codes Diagnosis Note [id number] Juan M Man MD. [facility] [employer] [address] [place] [phone] 01/15/2016 14:19:29 01/15/2016 16:57:06 Adult health examination 315239536 Z00.00 General health remains excellent and he has not smoked for quite a while now. We will check routine lab studies. Continue healthy lifestyle and close followup here and with other providers. Call back if symptoms change or worsen, or if additional problems develop. Screening procedure 2012 5006 Z13.9 Vitamin D deficiency 347 97584 E55.9 Hyperlipid emia screening 975824286 Z13.220 Screening for disorder 222266457 Z13.9 [id number] Juan M Man MD. [facility] [employer] [address] [place] [phone] 04/14/2017 14:04:38 04/14/2017 14:48:41 Adult health examination 715653335 Z00.00 General health remains excellent and he has not smoked for quite a while now. Will check routine lab studies. Continue healthy lifestyle and routine followup here and with other providers. Call back if symptoms change or worsen, or if additional problems develop. Screening procedure 20126 Z13.9 Father has had prostate cancer Murmur 416733730 R01.1 Most likely functional murmur [id number] Juan M Man MD. [facility] [employer] [address] [place] [phone] 04/17/2018 08:58:28 04/17/2018 09:51:16 Adult health examination 800095820 Z00.00 General health remains excellent and he has not smoked for quite a while now. Will check routine lab studies. Continue healthy lifestyle and routine followup here and with other providers. Avoid further weight gain Call back if symptoms change or worsen, or if additional problems develop. Family his tory of malignant neoplasm of prostate 488434578 Z80.42 Atopic dermatitis 185730 01 L20.9 Minor findings consistent with atopic dermatitis exacerbate d by dryness [id number] Joey Higginbotham MD. [facility] [employer] [address] [place] [phone] 10/12/2018 15:07:47 10/12/2018 15:27:01 Tick bite 91282671 W57.XXXA suspect lyme tick bite [id number] Kameron Bryant MD. [facility] [employer] [address] [place] [phone] 6 12/21/2018 09:10:58 12/21/2018 09:41:07 Soft tissue lesion of wrist and hand 959147837 M79.9 Health Concerns Section Related Observation LastModified by Organization Detai ls LastModified Time None Recorded Concern Status LastModified by Organization Details LastModified Time None Recorded Advance Directives Directive None Recorded Payers Insurance Date Sequence Insurance Name Policy Number Policy Valenzuela Covered Member ID Valenzuela Member ID Guarantor Name 12/21/2018 1 [employer] [facility] ([id number]) [id number] Anthony Pepper [id number] Anthony Pepper 01/18/2017 1 [facility] ([facility] Anthony Pepper [id number] Anthony Pepper 01/15/2016 1 [facility] ([facility] Anthony Pepper [id number] Anthony Pepper 01/13/2016 1 *SELF PAY* Aruna Pepper Notes Date Note Type Note Provider Name and Address Organization Details Recorded Time 01/15/2016 text/html Nothing hurts. Has not been ill. No injuries. Feels well today. Medical record and laboratory results reviewed No complaints of any kind. No problems related to past sports injuries. Juan M Man MD. [address] [place] [address], [phone], [facility] 01/18/2016 14:17:33 04/14/2017 text/html Comprehensive review Nothing hurts. Has not been ill. No injuries. Feels well today. Medical record and laboratory results and consultations and imaging reviewedHeart murmur noted in the past. He recalls having echocardiogram which revealed no worrisome findings No prescription medications Athletic. Continues to play basketball Juan M Man MD. [address] [place] [address], [phone], [facility] 04/17/2017 15:55:23 04/17/2018 text/html Comprehensive review Nothing hurts. Has not been ill. No injuries. Feels well today. Medical record and laboratory results and consultations and imaging reviewed. No prescription medications Athletic. Continues to play basketball. Has some rash in the popliteal area. No particular history of any skin disorders Juan M Man MD. [address] [place] [address], [phone], [facility] 04/18/2018 16:02:14 10/12/2018 text/html ROS as noted in the HPI patient had a tick bite on the left upper back with a red circular rash which developed about a week after the tick was removed. patient said he is unsure how long the tick was on his body and he is also not sure what kind of tick that was. his friend pulled it out for him. no fever. patient did see the tick. Joey Higginbotham MD. 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 Amber Garcia NP [address] [place] [address], [phone], [facility] 12/21/2018 09:46:57
== END 2025-02-27 09:03 | disposition home or self-care (01) ==
LOC: HO.HUSH 08:31
PROVIDERS: Visit Provider Urology
DX: R45.89 Other symptoms and signs involving emotional state (principal)
CPT/HCPCS: 99213